=== PATIENT | male | born 1970 | race Caucasian/White ===

== ENCOUNTER 2020-11-18 01:49 | Emergency (ER) | payer OTHER ==
[~2020-11-18] VITALS: Ht 177.8 cm; Wt 100.0 kg
[2020-11-18 02:01] VITALS: BP 125/80
[2020-11-18] MEDS ORDERED: FLUORESCEIN SODIUM 1 MG STRIP OD ONE (02:45)
[2020-11-18] MEDS ORDERED: PROPARACAINE HCL 0.5% 15 ML OPHTHALMIC SOLUTION ONE (03:07)
[2020-11-18] MEDS ORDERED: PROPARACAINE HCL 0.5% 15 ML OPHTHALMIC SOLUTION OU ONE (03:15)
== END 2020-11-18 04:32 | disposition home or self-care (01) ==
LOC: EMS 01:49
DX: T26.61XA Corrosion of cornea and conjunctival sac, right eye, initial encounter (principal); T26.62XA Corrosion of cornea and conjunctival sac, left eye, initial encounter; Y93.89 Activity, other specified; Y92.89 Other specified places as the place of occurrence of the external cause; Y99.8 Other external cause status
CPT/HCPCS: 99173; 99283; 99284